=== PATIENT | female | born 1995 | race Hispanic/Latino ===

== ENCOUNTER 2017-04-18 17:24 | Inpatient (IN) | payer MEDICAID ==
--- NOTE | 2017-04-18 17:32 | C.PDOC ---
History Of Present Illness 21 y/o female, with PMHx of asthma, depression, and drug use, is transferred from [facility] for depression under Dr. Wilkes's service. Pt has multiple history of prior hospitalization in the mental health department. As per note, pt has suicidal ideation with plan on cutting herself. (+) h/o suicidal attempt. Otherwise, denies homicidal ideation, or any other active physical complaints at this time. Time Seen by Provider: 04/18/17 17:27 Chief Complaint (Nursing): Psychiatric Evaluation History Per: Patient History/Exam Limitations: no limitations Onset/Duration Of Symptoms: Gradual Current Symptoms Are (Timing): Still Present Modifying Factor(s): None Severity: None Pain Scale Rating Of: 0 Associated Symptoms: Suicidal Thoughts Involuntary Hold By: None Recent travel outside of the [place]: No Additional History Per: Patient Past Medical History Reviewed: Historical Data, Nursing Documentation, Vital Signs Vital Signs: Last Vital Signs Temp 98.7 F 04/20/17 16:25 Pulse 93 H 04/20/17 16:25 Resp 20 04/20/17 16:25 BP 115/78 04/20/17 16:25 Pulse Ox 97 04/21/17 07:52 Family History: States: Unknown Family Hx Review Of Systems Except As Marked, All Systems Reviewed And Found Negative. Constitutional: Negative for: Fever, Chills Cardiovascular: Negative for: Chest Pain, Palpitations Respiratory: Negative for: Cough, Shortness of Breath Gastrointestinal: Negative for: Nausea, Vomiting, Abdominal Pain Musculoskeletal: Negative for: Neck Pain, Back Pain Skin: Negative for: Rash, Bruising Neurological: Negative for: Headache, Dizziness Psych: Positive for: Depression, Suicidal ideation Physical Exam - Physical Exam Appears: Non-toxic, No Acute Distress Skin: Normal Color, Warm, Dry, No Rash Head: Atraumatic, Normacephalic Eye(s): bilateral: Normal Inspection, EOMI Nose: Normal Oral Mucosa: Moist Neck: Normal ROM, Supple Chest: Symmetrical Respiratory: No Accessory Muscle Use Back: No CVA Tenderness Extremity: Normal ROM Extremity: Bilateral: Atraumatic Neurological/Psych: Oriented x3, Normal Speech ED Course And Treatment O2 Sat by Pulse Oximetry: 97 (on RA) Pulse Ox Interpretation: Normal Progress Note: On re-eval, patient is resting comfortably, and is in no acute distress. Patient will be admitted to hospital under Dr. Wilkes's service. Disposition - Disposition Disposition: HOSPITALIZED Disposition Time: 17:00 Condition: STABLE - Clinical Impression Clinical Impression: Bipolar disorder, current episode mixed, moderate, Opioid use disorder, moderate, dependence, Depression - PA / TECHNICIAN / Resident Statement MD/DO has reviewed & agrees with the documentation as recorded. - Scribe Statement The provider has reviewed the documentation as recorded by the Krysten De León All medical record entries made by the Krysten were at my direction and personally dictated by me. I have reviewed the chart and agree that the record accurately reflects my personal performance of the history, physical exam, medical decision making, and the department course for this patient. I have also personally directed, reviewed, and agree with the discharge instructions and disposition.
--- NOTE | 2017-04-18 19:20 | PCM.BM ---
<Valeri Baltazar - Last Filed: 04/18/17 19:17> Treatment Plan Problems - Problems identified on initial assessmt Depression Date Initiated: 04/18/17 Time Initiated: 18:45 Assessment reference: NA Status: Active Substance Abuse Date Initiated: 04/18/17 Time Initiated: 18:45 Assessment reference: NA Status: Active Treatment assets and liabiliti Patient Assests: adapts well, cooperative, ADL independent, physically healthy, negotiates basic needs, cognitively intact Patient Liabilities: live alone (Homeless), poor support system, substance abuse (Cocaine, Opiates, THC) - Milieu Protocol Maintain good personal hygiene: daily Encourage regular showers, daily Remind patient to perform daily oral care, other Assist patient to perform ADL's (Self) Conduct patient checks and document Observation sheet: Q15 minutes (Safety) Maintain personal safety: every shift Educate patient to report safety concerns to staff, every shift Monitor environment for contraband/sharps Medication safety: Monitor for expected outcome, potential side effects: every shift, Assess barriers to learning: every shift, Assess readiness for medication education: every shift <Bharathi Wilkes - Last Filed: 04/20/17 11:27> - Diagnosis (1) Bipolar disorder, current episode mixed, moderate Status: Acute Interventions: 04/20/17 11:27 * Assess/adjust medications daily and /or as needed * See patient on an individual basis 7x/week to assess level of manic behaviors and stability * Discuss risks, benefits, side effects and alternatives of medications * (2) Opioid use disorder, moderate, dependence Status: Acute Interventions: 04/20/17 11:28 * Assess 7x/week regarding severity of withdrawal * Educate regarding risks, benefits, side effects and alternatives of medications * Use Motivational Interviewing for abstinence * Use CBT for relapse prevention * Medication management for withdrawal symptoms * Encourage medication assisted treatment * (3) Cocaine use disorder, moderate, dependence Status: Acute Interventions: 04/20/17 11:28 * Assess 7x/week regarding severity of withdrawal * Educate regarding risks, benefits, side effects and alternatives of medications * Use Motivational Interviewing for abstinence * Use CBT for relapse prevention * Medication management for withdrawal symptoms * Encourage medication assisted treatment * <Muriel Ahmadi - Last Filed: 04/20/17 11:56> Family Contact Family involvement: Famliy/SO not involved - Goals for Treatment Patient goals for treatment: "I need a place to live." Discharge/Continuing Care - Education Needs Education Needs: Patient Medication, Patient Coping Skills, Patient Placement options, Patient Community resources - Discharge Discharge Criteria: Tolerates medication w/o severe side effects, No longer exhibiting s/s of withdrawal Discharge to:: [facility] - Treatment Team Participation Discussed with Family/SO: No Was Patient/Family/SO present at Treatment Team Meeting: Yes
[2017-04-19] MEDS ORDERED: Albuterol HFA 90 mcg/actuation (8 g) INH PRN (08:43)
--- NOTE | 2017-04-19 16:00 | PCM.PSYCH ---
Initial Psychiatric Evaluation - Initial Psychiatric Evaluation Type of Admission: Voluntary Legal Status: Capacity Chief Complaint (in patient's own words): "I'm all right." History of Present Illness and Precipitating Events: Pt. is seen, chart reviewed, case discussed with staff. Pt. is a 21 y/o female who is a transfer from [facility] for depression, SI, cutting, and heroin abuse. Pt. claims the suicidal ideation has been happening for a while now, and there is no specific stressor for them. She had previous suicide attempt 3 yrs. ago when she overdosed on 14 pills of lithium and was hospitalized after the incident. Pt. has 6-7x history of admissions in the psychiatric department in her lifetime for suicidal ideation and cutting. Last time she was in the hospital was 3 yrs. ago on Jul 06. at [facility], when she overdosed on fentanyl. Pt. claims the reason for cutting is for "sight of blood," and the last time she cut her legs was a week ago. Pt. denies being treated for her wounds. Pt. reports to using "1 blunt" of marijuana whenever she has racing thoughts. Pt. also reports to snorting heroin for the past week, whenever she felt "manic." Last use was 3 days ago. Pt. also claims to using cocaine, but did not specify amount. Pt. currently does not report any withdrawal sxs. Pt. reports to drinking alcohol socially and denies smoking cigarettes. Pt. reports she feels depressed and feels hopeless and helpless. She states she has low energy and no appetite. She claims she has not eaten for the past 3 days. Pt. also reports to having racing thoughts and flight of ideas. She claims she purposely talks fast and "jumps from subject to subject" because she cannot get her "thoughts out." She says smoking marijuana somewhat helps her with these thoughts. She reports to having one serious manic episode in the past , and most of the time, her mood is "very high," and only experiences "low mood " when she crashes. Pt currently denies suicidal and homicidal ideation. She also denies auditory and visual hallucinations. She slept on/off throughout the night. PMH: asthma FamHx: denies Social: single; no children; homeless since 2 weeks ago; unemployed--"just getting by" Past Psych Hx: 6-7x inpatient; 1x suicide attempt; hx. of SI and cutting; sees therapist (Juancho Luis) in [place] After care discussed. Pt. states she just wants to be on medications and look for a new therapist after discharge. Current Medications: Active Medications Generic Name Dose Route Start Last Admin Trade Name Freq PRN Reason Stop Dose Admin Albuterol 1 puff 04/19/17 08:43 Ventolin Hfa 90 Mcg/Actuation (8 G) INH RQ4 PRN SOB Hydroxyzine HCl 50 mg 04/18/17 22:35 Atarax PO Q6H PRN Anxiety Ibuprofen 600 mg 04/18/17 22:35 Motrin Tab PO Q6H PRN Pain, moderate (4-7) Pneumococcal Polyvalent Vaccine 0.5 ml 04/22/17 10:00 Pneumovax 23 Vaccine IM 04/22/17 10:01 .ONCE ONE Trazodone HCl 50 mg 04/18/17 22:35 Desyrel PO HS PRN Insomnia Past Psychiatric History - Past Psychiatric History Previous Treatment History: Inpatient Pertinent Medical Hx (Current Medical&Sleep Prob, Allergies): Allergies Allergy/AdvReac Type Severity Reaction Status Date / Time No Known Allergies Allergy Verified 04/18/17 17:26 Albuterol HFA [Ventolin HFA 90 mcg/actuation (8 g)] 2 puff INH Q6 PRN 04/18/17 Review of Systems - Review of Systems All systems: reviewed and no additional remarkable complaints except - Neurological Neurological: UNREMARKABLE - Psychiatric Psychiatric: Anxiety, Change in Appetite, Depression, Hopelessness, Mood Swings , Suicidal Ideation. absent: Auditory Hallucinations, Homicidal Ideation, Visual Hallucinations Mental Status Examination - Personal Presentation Personal Presentation: Looks stated age - Affect Affect: Constricted, Depressed - Motor Activity Motor Activity: Psychomotor Agitation - Reliability in Providing Information Reliability in Providing Information: Fair, Poor, due to altered mood - Speech Speech: Organized - Mood Mood: Depressed, Anxious - Formal Thought Process Formal Thought Process: Flight of ideas - Obsessions/Compulsions Obsessions: No Compulsions: No - Cognitive Functions Orientation: Person, Place, Situation, Time Sensorium: Alert Attention/Concentration: Attentive Abstract Thinking: [place] Estimate of Intelligence: Below average Judgement: Imparied, as evidence by: Poor judgement, Imparied, as evidence by: Lack of insight into illness Memory: Recent intact, as evidence by: Ability to recall events of the day - Risk Risk: Suicidal, Self-mutilation - Strength & Assets Inventory Strength & Assets Inventory: Employment history - Limitations Limitations: Other (Homeless) DSM 5 DX - DSM 5 DSM 5 Diagnosis: Bipolar disorder mixed moderate cocaine use d/o-moderate Opioid use disorder moderate - Recommended/Plan of Treatment Treatment Recommendations and Plan of Treatment: -Bipolar disorder mixed moderate CBT Psychoeducation Supportive therapy, group therapy, individual therapy Atarax 50 mg PO Q6H PRN Trazadone 50 mg PO HS PRN Neurontin 300 mg PO TID -Cocaine use d/o-moderate -Opioid use disorder moderate Attend groups and activities Use [place] for abstinence CBT for relapse prevention Support and psychoeducation - Smoking Cessation Smoking Cessation Initiated: No
--- NOTE | 2017-04-20 11:29 | PCM.PYCHPN ---
Psychiatric Progress Note - Psychiatric Progress Note Patient seen today, length of contact: 16 min Patient Chief Complaint: "I'm all right." Problems Identified/Issues Discussed: Patient seen and evaluated, chart reviewed and discussed with the nurse. Patient remained isolated, and withdrawn. Patient reports depressed mood, irritability and agitation. She has started taking medication and denies any side effects. She denies any AVH but remained confined to her room. Supportive therapy and psychoeducation were given. Medication Change: Yes (start lamictal) Medical Record Reviewed: Yes Mental Status Examination - Cognitive Function Orientation: Person, Place, Situation, Time Memory: Intact Attention: WNL Concentration: Poor Association: WNL Fund of Knowledge: Poor - Mood Mood: Depressed, Anxious - Affect Affect: Constricted, Depressed - Speech Speech: Pressured - Formal Thought Process Formal Thought Process: Flight of ideas - Suicidal Ideation Suicidal Ideation: No - Homicidal Ideation Homicidal Ideation: No Goal/Treatment Plan - Goal/Treatment Plan Need for Continued Stay: Discharge may exacerbated symptoms, Severe functional impairment Progress Toward Problem(s) and Goals/Treatment Plan: -Bipolar disorder mixed moderate CBT Psychoeducation Supportive therapy, group therapy, individual therapy Atarax 50 mg PO Q6H PRN Trazadone 50 mg PO HS PRN Neurontin 300 mg PO TID Lamictal 25 mg po bid -Cocaine use d/o-moderate -Opioid use disorder moderate Attend groups and activities Use [place] for abstinence CBT for relapse prevention Support and psychoeducation - Smoking Cessation Smoking Cessation Initiated: No
[2017-04-20] MEDS: Cephalexin Susp 250 MG/5 ML PO SCH (17:53)
[2017-04-21] MEDS: Cephalexin Susp 250 MG/5 ML PO SCH ×2 (10:26→17:51)
--- NOTE | 2017-04-21 11:18 | PCM.PYCHPN ---
Psychiatric Progress Note - Psychiatric Progress Note Patient seen today, length of contact: 15 min. Patient Chief Complaint: "I feel the same." Problems Identified/Issues Discussed: Pt. is seen, chart reviewed, and case discussed with staff. Pt. reports her mood is the same from yesterday. She requests medication for her anxiety. Pt. seems withdrawn and irritable. No new symptoms reported, improving slowly, and needs more time to stabilize. No SEs from medications, risks discussed. After care discussed. SW will be contacting her therapist for future planning. Medication Change: Yes (Increase lamictal) Medical Record Reviewed: Yes Mental Status Examination - Cognitive Function Orientation: Person, Place, Situation, Time Memory: Intact Attention: Poor Concentration: Poor Association: WNL Fund of Knowledge: WNL - Mood Mood: Depressed, Anxious - Affect Affect: Constricted, Depressed - Speech Speech: Appropriate - Formal Thought Process Formal Thought Process: Flight of ideas - Suicidal Ideation Suicidal Ideation: No - Homicidal Ideation Homicidal Ideation: No Goal/Treatment Plan - Goal/Treatment Plan Need for Continued Stay: Remain at risks for inpatient hospitalization, Severe depression anxiety, Discharge may exacerbated symptoms Progress Toward Problem(s) and Goals/Treatment Plan: -Bipolar disorder mixed moderate CBT Psychoeducation Supportive therapy, group therapy, individual therapy Atarax 50 mg PO Q6H PRN Trazadone 50 mg PO HS PRN Neurontin 300 mg PO TID Increase Lamictal 50 mg PO BID -Cocaine use d/o-moderate -Opioid use disorder moderate Attend groups and activities Use [place] for abstinence CBT for relapse prevention Support and psychoeducation - Smoking Cessation Smoking Cessation Initiated: No
[2017-04-22 07:28] VITALS: O2SAT 99
[2017-04-22] MEDS: Cephalexin Susp 250 MG/5 ML PO SCH (09:44)
--- NOTE | 2017-04-22 09:45 | PCM.PYCHDC ---
Mental Status Examination - Mental Status Examination Orientation: Person, Place, Situation, Time Memory: Intact Mood: Neutral Affect: Constricted Speech: Soft Attention: WNL Concentration: WNL Association: WNL Fund of Knowledge: WNL Formal Thought Process: No Impairment Description of patient's judgement and insight: good, fair Psychotic Thoughts and Behaviors: denies any AVH Suicidal Ideation: No Current Homicidal Ideation?: No Discharge Summary - Discharge Note Reason for Hospitalization: Pt. is seen, chart reviewed, case discussed with staff. Pt. is a 21 y/o female who is a transfer from [facility] for depression, SI, cutting, and heroin abuse. Pt. claims the suicidal ideation has been happening for a while now, and there is no specific stressor for them. She had previous suicide attempt 3 yrs. ago when she overdosed on 14 pills of lithium and was hospitalized after the incident. Pt. has 6-7x history of admissions in the psychiatric department in her lifetime for suicidal ideation and cutting. Last time she was in the hospital was 3 yrs. ago on Jul 06. at [facility], when she overdosed on fentanyl. Pt. claims the reason for cutting is for "sight of blood," and the last time she cut her legs was a week ago. Pt. denies being treated for her wounds. Pt. reports to using "1 blunt" of marijuana whenever she has racing thoughts. Pt. also reports to snorting heroin for the past week, whenever she felt "manic." Last use was 3 days ago. Pt. also claims to using cocaine, but did not specify amount. Pt. currently does not report any withdrawal sxs. Pt. reports to drinking alcohol socially and denies smoking cigarettes. Pt. reports she feels depressed and feels hopeless and helpless. She states she has low energy and no appetite. She claims she has not eaten for the past 3 days. Pt. also reports to having racing thoughts and flight of ideas. She claims she purposely talks fast and "jumps from subject to subject" because she cannot get her "thoughts out." She says smoking marijuana somewhat helps her with these thoughts. She reports to having one serious manic episode in the past , and most of the time, her mood is "very high," and only experiences "low mood " when she crashes. Pt currently denies suicidal and homicidal ideation. She also denies auditory and visual hallucinations. She slept on/off throughout the night. Consultations:: List each consultation separately and include: 1. Reason for request. 2. Findings. 3. Follow-up Summary of Hospital Course include:: 1. Description of specific treatment plan utilized for patients during their course of treatmen. 2. Summarize the time- course for resolution of acute symptoms and/or regressed behaviors. 3. Describe issues identified and worked on during hospitalization. 4. Describe medication utilized. 5. Describe medical problems identified and treated. 6. Reassessment of suicide risk Summary of Hospital Course: During the course of her stay, patient (pt) started progressively improving and she no longer remained anxious, depressed and suicidal. Her mood was getting better and she started attending groups and meetings and started socializing. The doses of her medications were maximized and patient denied any feelings of hopelessness, helplessness, and worthlessness, denied any problem with the sleep or appetite, denied suicidal ideation or homicidal ideation. Pt denied any auditory or visual hallucinations. Patient reported improvement in her mood and tolerated these medications very well and denied any side effects. She was discharged to the assisted with a plan to follow up with [facility]. - Diagnosis (1) Bipolar disorder, current episode mixed, moderate Status: Acute (2) Opioid use disorder, moderate, dependence Status: Acute (3) Cocaine use disorder, moderate, dependence Status: Acute - Final Diagnosis (DSM 5) Condition upon Discharge: STABLE DSM 5: -Bipolar disorder mixed moderate -Cocaine use d/o-moderate -Opioid use disorder moderate Disposition: HOME/ ROUTINE Follow-up Treatment Plan: Education: Pt was educated and counseled about the risks and benefits of taking and not taking medications. Pt was educated and counseled about the risks of drinking and abusing drugs. Pt was educated and counseled to go to the ER or call 911 if pt develop suicidal ideation or homicidal ideation, worsening of symptoms or severe side effects of the meds. Prescriptions/Medication Reconciliation: Cephalexin Susp [Keflex] 250 mg PO BID #14 ml lamoTRIgine [Lamictal] 50 mg PO BID 14 Days tab - Smoking Cessation Smoking Cessation Medication prescribed: No - Antipsychotic Medications Pt discharged on 2 or more routine antipsychotic medications: No
[2017-04-22] MEDS ORDERED: Pneumococcal 23-Valent Vaccine IM ONE (10:00)
[2017-04-22 16:40] VITALS: BP 0/0; PULSE 0; RESP 0; TEMP 0
== END 2017-04-22 14:40 | disposition home or self-care (01) | DRG 430 ==
LOC: C.ER 17:24 → C.9E 17:32 → C.5E 19:14
PROVIDERS: ADMIT Psychiatry & Neurology Psychiatry; ATTEND Psychiatry & Neurology Psychiatry
PROC: GZHZZZZ Group Psychotherapy (ICD-10-PCS; principal; 2017-04-18)
PROC: GZ58ZZZ Individual Psychotherapy, Cognitive-Behavioral (ICD-10-PCS; 2017-04-18)
PROC: GZ56ZZZ Individual Psychotherapy, Supportive (ICD-10-PCS; 2017-04-18)
DX: F31.62 Bipolar disorder, current episode mixed, moderate (principal); F11.20 Opioid dependence, uncomplicated; R45.851 Suicidal ideations; F14.20 Cocaine dependence, uncomplicated; F12.90 Cannabis use, unspecified, uncomplicated; F41.9 Anxiety disorder, unspecified; J45.909 Unspecified asthma, uncomplicated; Z79.899 Other long term (current) drug therapy; Z91.5 Personal history of self-harm